=== PATIENT | male | born 1945 | race African-American/Black ===

== ENCOUNTER 2022-02-11 02:20 | Inpatient (IN) | payer MEDICARE ==
[~2022-02-11] VITALS: Ht 190.5 cm; Wt 87.1 kg
[~2022-02-11 02:20] MED LIST: ASPI-1497 MT; CARV6.2548 MT; LORA10TA7 MT; METF-414 MT; MONT-39 MT
[2022-02-11 08:51] LABS: CHLORIDE 106 mEq/L (98-107)
[2022-02-11 08:57] LABS: HEMATOCRIT. 27.6 % (42.0-52.0); MEAN CORPUSCULAR HEMOGLOBIN 27.6 pg (28.0-32.0); MEAN CORPUSCULAR VOLUME 84.3 fL (80.0-94.0); MEAN PLATELET VOLUME 10.4 fl (7.4-10.4); PLATELET 117 x1000/uL (130-400); RED BLOOD CELL COUNT 3.27 mill/uL (4.7-6.1); RED CELL DISTRIBUTION WIDTH 16.2 % (11.6-14.6)
[2022-02-11 10:08] LABS: PLATELET ESTIMATE SLIGHTLY DECREASED
[2022-02-11] MEDS ORDERED: HYDRALAZINE 20MG/ML VIAL IV ONE (11:15)
[2022-02-11 18:00] VITALS: BP 170/132
[2022-02-11 18:27] VITALS: BP 152/113
[2022-02-11 20:00] VITALS: BP 151/115
[2022-02-11] MEDS ORDERED: LEVO150T8 PO (20:27)
[2022-02-11] MEDS ORDERED: ATOR40TA70 PO (20:27)
[2022-02-11] MEDS ORDERED: CLOP-31 PO (20:27)
[2022-02-11] MEDS ORDERED: AMLO10TA80 PO (20:28)
[2022-02-11] MEDS ORDERED: CLONIDINE 0.1MG TABLET PO NR (20:30)
[2022-02-11 21:01] VITALS: BP 150/110
[2022-02-11] MEDS: ATORVASTATIN CALCIUM 40MG TABLET PO SCH (22:03)
[2022-02-11] MEDS: CARVEDILOL 12.5MG TABLET PO SCH (22:03)
[2022-02-11] MEDS: AMLODIPINE 10MG TABLET PO SCH (22:03)
[2022-02-12] VITALS (7 sets, daily range): BP systolic 122–160; BP diastolic 67–109
[2022-02-12] MEDS ORDERED: NITROGLYCERIN 0.4MG TABLET SL SL PRN (01:00)
[2022-02-12] MEDS ORDERED: HYDRALAZINE 20MG/ML VIAL IV PRN (01:00)
[2022-02-12] MEDS: LEVOTHYROXINE SODIUM 150MCG TABLET PO SCH (06:14)
[2022-02-12] MEDS: PANTOPRAZOLE 40MG DR TABLET PO SCH (06:14)
[2022-02-12 07:39] LABS: MEAN CORPUSCULAR HEMOGLOBIN 27.6 pg (28.0-32.0); MEAN PLATELET VOLUME 10.1 fl (7.4-10.4); PLATELET 110 x1000/uL (130-400); RED BLOOD CELL COUNT 2.89 mill/uL (4.7-6.1); RED CELL DISTRIBUTION WIDTH 16.1 % (11.6-14.6)
[2022-02-12] MEDS: LORATADINE 10MG TABLET PO SCH (08:59)
[2022-02-12] MEDS: CARVEDILOL 12.5MG TABLET PO SCH ×2 (08:59→21:07)
[2022-02-12] MEDS: AMLODIPINE 10MG TABLET PO SCH (08:59)
[2022-02-12] MEDS ORDERED: ASPIRIN 81MG TABLET PO SCH (09:00)
[2022-02-12] MEDS ORDERED: CLOPIDOGREL 75MG TABLET PO SCH (09:00)
[2022-02-12] MEDS ORDERED: HEPARIN 5000 UNITS/ML VIAL SUBCUT SCH (09:00)
[2022-02-12 10:44] LABS: PLATELET ESTIMATE DECREASED
[2022-02-12 11:36] LABS: T4 FREE 0.96 ng/dL (0.76-1.46)
[2022-02-12] MEDS: MONTELUKAST SODIUM 10MG TABLET PO SCH (16:32)
[2022-02-12] MEDS: SODIUM CHLORIDE 0.45% 1,000 ML IV SCH (16:32)
[2022-02-12 17:12] LABS: CLARITY URINE CLEAR (CLEAR); COLOR URINE YELLOW (YELLOW); KETONES URINE NEGATIVE (NEGATIVE); LEUKOCYTE ESTERASE URINE NEGATIVE (NEGATIVE); NITRITE URINE NEGATIVE (NEGATIVE); OCCULT BLOOD URINE NEGATIVE (NEGATIVE); PH URINE 5.5 (4.5-8.0); PROTEIN URINE 3+ (NEGATIVE); SPECIFIC GRAVITY URINE 1.014 (1.005-1.030); UROBILINOGEN URINE 0.2 E.U./dL (0.2-1.0)
[2022-02-12] MEDS: ATORVASTATIN CALCIUM 40MG TABLET PO SCH (21:16)
[2022-02-13] VITALS (7 sets, daily range): BP systolic 137–157; BP diastolic 92–101
[2022-02-13] MEDS: SODIUM CHLORIDE 0.45% 1,000 ML IV SCH ×2 (04:01→16:37)
[2022-02-13] MEDS: PANTOPRAZOLE 40MG DR TABLET PO SCH (06:15)
[2022-02-13] MEDS: LEVOTHYROXINE SODIUM 150MCG TABLET PO SCH (06:15)
[2022-02-13 07:28] LABS: BASOPHILS % 0.7 % (0.0-2.0); EOSINOPHILS % 2.6 % (0.0-5.0); HEMATOCRIT. 23.8 % (42.0-52.0); LYMPHOCYTES % 32.5 % (20.0-50.0); MEAN CORPUSCULAR HEMOGLOBIN 27.8 pg (28.0-32.0); MEAN CORPUSCULAR VOLUME 82.7 fL (80.0-94.0); MONOCYTES % 14.4 % (2.0-8.0); NEUTROPHILS % 49.8 % (40.0-76.0); PLATELET 102 x1000/uL (130-400); RED BLOOD CELL COUNT 2.88 mill/uL (4.7-6.1); RED CELL DISTRIBUTION WIDTH 15.8 % (11.6-14.6)
[2022-02-13] MEDS: LORATADINE 10MG TABLET PO SCH (08:21)
[2022-02-13] MEDS: AMLODIPINE 10MG TABLET PO SCH (08:22)
[2022-02-13] MEDS: CARVEDILOL 12.5MG TABLET PO SCH ×2 (08:24→20:34)
[2022-02-13] MEDS: HYDRALAZINE HCL 50MG TABLET PO SCH ×3 (10:33→21:26)
[2022-02-13] MEDS: MONTELUKAST SODIUM 10MG TABLET PO SCH (16:37)
[2022-02-13] MEDS: ATORVASTATIN CALCIUM 40MG TABLET PO SCH (20:33)
[2022-02-14] VITALS (24 sets, daily range): BP systolic 122–165; BP diastolic 78–107
[2022-02-14] MEDS: HYDRALAZINE HCL 50MG TABLET PO SCH ×3 (06:00→21:55)
[2022-02-14] MEDS: PANTOPRAZOLE 40MG DR TABLET PO SCH (06:27)
[2022-02-14] MEDS: LEVOTHYROXINE SODIUM 150MCG TABLET PO SCH (06:27)
[2022-02-14] MEDS: SODIUM CHLORIDE 0.45% 1,000 ML IV SCH ×2 (06:27→20:02)
[2022-02-14] MEDS: LORATADINE 10MG TABLET PO SCH (08:18)
[2022-02-14] MEDS: AMLODIPINE 10MG TABLET PO SCH (08:18)
[2022-02-14] MEDS: CARVEDILOL 12.5MG TABLET PO SCH ×2 (08:18→21:54)
[2022-02-14] MEDS ORDERED: LIDOCAINE HCL/PF 1% 10 MG/ML 5ML VIAL ONE (12:56)
[2022-02-14] MEDS ORDERED: MIDAZOLAM HCL 2 MG/2 ML VIAL ONE (13:11)
[2022-02-14] MEDS ORDERED: FENTANYL CITRATE/PF 50MCG/ML 2ML VIAL ONE (13:11)
[2022-02-14] MEDS ORDERED: CEFAZOLIN 1000MG PREMIX 50 ML IV ONE ×2 (13:25→13:43)
[2022-02-14] MEDS ORDERED: FENTANYL CITRATE/PF 50MCG/ML 2ML VIAL IV ONE ×2 (13:35→13:45)
[2022-02-14 14:39] LABS: HEPATITIS B SURFACE ANTIGEN NEGATIVE
[2022-02-14] MEDS: MONTELUKAST SODIUM 10MG TABLET PO SCH (16:43)
[2022-02-14] MEDS: EPOETIN ALFA-EPBX 4,000 UNIT/ML VIAL SUBCUT SCH (21:53)
[2022-02-14] MEDS: ATORVASTATIN CALCIUM 40MG TABLET PO SCH (21:55)
[2022-02-15] VITALS: BP 156/95
[2022-02-15 04:00] VITALS: BP 152/99
[2022-02-15] MEDS: PANTOPRAZOLE 40MG DR TABLET PO SCH (06:45)
[2022-02-15] MEDS: LEVOTHYROXINE SODIUM 150MCG TABLET PO SCH (06:45)
[2022-02-15] MEDS: HYDRALAZINE HCL 50MG TABLET PO SCH ×3 (06:45→21:35)
[2022-02-15 07:23] LABS: HEMATOCRIT. 24.2 % (42.0-52.0); HEMOGLOBIN. 8.1 g/dL (14.0-18.0); MEAN CORPUSCULAR HEMOGLOBIN 27.5 pg (28.0-32.0); MEAN CORPUSCULAR VOLUME 82.4 fL (80.0-94.0); MEAN PLATELET VOLUME 10.4 fl (7.4-10.4); PLATELET 107 x1000/uL (130-400); RED BLOOD CELL COUNT 2.93 mill/uL (4.7-6.1); RED CELL DISTRIBUTION WIDTH 15.3 % (11.6-14.6)
[2022-02-15 08:00] VITALS: BP 132/89
[2022-02-15] MEDS: SODIUM CHLORIDE 0.45% 1,000 ML IV SCH ×2 (09:41→21:33)
[2022-02-15] MEDS: LORATADINE 10MG TABLET PO SCH (09:43)
[2022-02-15] MEDS: CARVEDILOL 12.5MG TABLET PO SCH ×2 (09:43→21:32)
[2022-02-15] MEDS: AMLODIPINE 10MG TABLET PO SCH (09:43)
[2022-02-15 11:35] VITALS: BP 129/71
[2022-02-15 16:00] VITALS: BP 132/86
[2022-02-15] MEDS: MONTELUKAST SODIUM 10MG TABLET PO SCH (16:23)
[2022-02-15 20:00] VITALS: BP 141/86
[2022-02-15 21:31] LABS: PLATELET ESTIMATE DECREASED
[2022-02-15] MEDS: ATORVASTATIN CALCIUM 40MG TABLET PO SCH (21:31)
[2022-02-16] VITALS (13 sets, daily range): BP systolic 127–151; BP diastolic 64–98
[2022-02-16] MEDS: HYDRALAZINE HCL 50MG TABLET PO SCH ×3 (06:00→22:15)
[2022-02-16 06:01] LABS: HEMATOCRIT. 23.1 % (42.0-52.0); HEMOGLOBIN. 7.7 g/dL (14.0-18.0); MEAN CORPUSCULAR HEMOGLOBIN 27.8 pg (28.0-32.0); MEAN CORPUSCULAR VOLUME 83.2 fL (80.0-94.0); MEAN PLATELET VOLUME 9.9 fl (7.4-10.4); PLATELET 92 x1000/uL (130-400); RED BLOOD CELL COUNT 2.78 mill/uL (4.7-6.1); RED CELL DISTRIBUTION WIDTH 15.5 % (11.6-14.6)
[2022-02-16] MEDS: LEVOTHYROXINE SODIUM 150MCG TABLET PO SCH (06:34)
[2022-02-16] MEDS: PANTOPRAZOLE 40MG DR TABLET PO SCH (06:34)
[2022-02-16] MEDS: CARVEDILOL 12.5MG TABLET PO SCH ×2 (08:24→22:15)
[2022-02-16] MEDS: LORATADINE 10MG TABLET PO SCH (08:25)
[2022-02-16] MEDS: AMLODIPINE 10MG TABLET PO SCH ×2 (08:25→16:46)
[2022-02-16 13:28] LABS: PLATELET ESTIMATE SLIGHTLY DECREASED
[2022-02-16] MEDS: SODIUM CHLORIDE 0.45% 1,000 ML IV SCH (16:45)
[2022-02-16] MEDS: MONTELUKAST SODIUM 10MG TABLET PO SCH (16:46)
[2022-02-16] MEDS: ATORVASTATIN CALCIUM 40MG TABLET PO SCH (22:15)
[2022-02-16] MEDS: EPOETIN ALFA-EPBX 4,000 UNIT/ML VIAL SUBCUT SCH (22:15)
[2022-02-17] VITALS (7 sets, daily range): BP systolic 116–148; BP diastolic 64–96
[2022-02-17] MEDS: SODIUM CHLORIDE 0.45% 1,000 ML IV SCH ×2 (01:22→17:17)
[2022-02-17] MEDS: PANTOPRAZOLE 40MG DR TABLET PO SCH (06:26)
[2022-02-17] MEDS: LEVOTHYROXINE SODIUM 150MCG TABLET PO SCH (06:26)
[2022-02-17] MEDS: HYDRALAZINE HCL 50MG TABLET PO SCH ×3 (06:26→22:00)
[2022-02-17 08:25] LABS: BASOPHILS % 1.2 % (0.0-2.0); EOSINOPHILS % 1.7 % (0.0-5.0); HEMATOCRIT. 23.8 % (42.0-52.0); LYMPHOCYTES % 27.9 % (20.0-50.0); MEAN CORPUSCULAR VOLUME 83.5 fL (80.0-94.0); MEAN PLATELET VOLUME 10.8 fl (7.4-10.4); MONOCYTES % 13.8 % (2.0-8.0); NEUTROPHILS % 55.4 % (40.0-76.0); PLATELET 95 x1000/uL (130-400); RED BLOOD CELL COUNT 2.85 mill/uL (4.7-6.1); RED CELL DISTRIBUTION WIDTH 15.5 % (11.6-14.6)
[2022-02-17] MEDS: LORATADINE 10MG TABLET PO SCH (10:03)
[2022-02-17] MEDS: AMLODIPINE 10MG TABLET PO SCH (10:03)
[2022-02-17] MEDS: CARVEDILOL 12.5MG TABLET PO SCH ×2 (10:04→20:53)
[2022-02-17] MEDS: MONTELUKAST SODIUM 10MG TABLET PO SCH (17:15)
[2022-02-17] MEDS: ATORVASTATIN CALCIUM 40MG TABLET PO SCH (20:53)
[2022-02-17] MEDS: AMLODIPINE 5MG TABLET PO SCH (20:54)
[2022-02-18] VITALS: BP 135/87
[2022-02-18] MEDS: SODIUM CHLORIDE 0.45% 1,000 ML IV SCH (02:28)
[2022-02-18 04:00] VITALS: BP 130/79
[2022-02-18] MEDS: HYDRALAZINE HCL 50MG TABLET PO SCH ×3 (06:00→20:25)
[2022-02-18] MEDS: LEVOTHYROXINE SODIUM 150MCG TABLET PO SCH (06:37)
[2022-02-18] MEDS: PANTOPRAZOLE 40MG DR TABLET PO SCH (06:37)
[2022-02-18 08:00] VITALS: BP 127/77
[2022-02-18] MEDS: LORATADINE 10MG TABLET PO SCH (08:47)
[2022-02-18] MEDS: AMLODIPINE 5MG TABLET PO SCH ×2 (08:49→20:27)
[2022-02-18] MEDS: CARVEDILOL 12.5MG TABLET PO SCH ×2 (08:49→20:27)
[2022-02-18 12:00] VITALS: BP 114/79
[2022-02-18 16:00] VITALS: BP 118/70
[2022-02-18] MEDS: MONTELUKAST SODIUM 10MG TABLET PO SCH (17:13)
[2022-02-18 20:05] VITALS: BP 131/91
[2022-02-18] MEDS: ATORVASTATIN CALCIUM 40MG TABLET PO SCH (20:26)
[2022-02-19] VITALS (12 sets, daily range): BP systolic 113–151; BP diastolic 67–94
[2022-02-19 01:46] LABS: HEPATITIS B SURFACE ANTIGEN NEGATIVE
[2022-02-19] MEDS: HYDRALAZINE HCL 50MG TABLET PO SCH ×3 (06:00→21:35)
[2022-02-19] MEDS: PANTOPRAZOLE 40MG DR TABLET PO SCH (06:51)
[2022-02-19] MEDS: LEVOTHYROXINE SODIUM 150MCG TABLET PO SCH (06:51)
[2022-02-19] MEDS: SODIUM CHLORIDE 0.45% 1,000 ML IV SCH (08:38)
[2022-02-19] MEDS: CARVEDILOL 12.5MG TABLET PO SCH ×2 (08:39→20:48)
[2022-02-19] MEDS: AMLODIPINE 5MG TABLET PO SCH ×2 (08:39→20:48)
[2022-02-19] MEDS: LORATADINE 10MG TABLET PO SCH (08:39)
[2022-02-19] MEDS: MONTELUKAST SODIUM 10MG TABLET PO SCH (16:13)
[2022-02-19] MEDS: ATORVASTATIN CALCIUM 40MG TABLET PO SCH (20:47)
[2022-02-19] MEDS: EPOETIN ALFA-EPBX 4,000 UNIT/ML VIAL SUBCUT SCH (20:47)
[2022-02-20] VITALS: BP 143/102
[2022-02-20 04:18] VITALS: BP 129/104
[2022-02-20] MEDS: HYDRALAZINE HCL 50MG TABLET PO SCH ×3 (06:00→22:00)
[2022-02-20] MEDS: PANTOPRAZOLE 40MG DR TABLET PO SCH (06:04)
[2022-02-20] MEDS: LEVOTHYROXINE SODIUM 150MCG TABLET PO SCH (06:04)
[2022-02-20 07:11] LABS: HEMATOCRIT. 23.1 % (42.0-52.0); HEMOGLOBIN. 7.6 g/dL (14.0-18.0); MEAN CORPUSCULAR HEMOGLOBIN 27.4 pg (28.0-32.0); MEAN CORPUSCULAR VOLUME 83.2 fL (80.0-94.0); MEAN PLATELET VOLUME 10.9 fl (7.4-10.4); PLATELET 99 x1000/uL (130-400); RED BLOOD CELL COUNT 2.78 mill/uL (4.7-6.1); RED CELL DISTRIBUTION WIDTH 15.7 % (11.6-14.6)
[2022-02-20 09:00] VITALS: BP 133/87
[2022-02-20] MEDS: CARVEDILOL 12.5MG TABLET PO SCH ×2 (09:43→21:00)
[2022-02-20] MEDS: SODIUM CHLORIDE 0.45% 1,000 ML IV SCH (09:43)
[2022-02-20] MEDS: LORATADINE 10MG TABLET PO SCH (09:43)
[2022-02-20] MEDS: AMLODIPINE 5MG TABLET PO SCH ×2 (09:43→21:00)
[2022-02-20 12:00] VITALS: BP 145/89
[2022-02-20 16:00] VITALS: BP 129/89
[2022-02-20] MEDS: MONTELUKAST SODIUM 10MG TABLET PO SCH (16:57)
[2022-02-20] MEDS: ATORVASTATIN CALCIUM 40MG TABLET PO SCH (21:00)
[2022-02-20 21:27] LABS: INR 1.1; PROTHROMBIN TIME 11.7 sec (9.6-11.0)
[2022-02-21] MEDS: HYDRALAZINE HCL 50MG TABLET PO SCH ×2 (06:00→15:20)
[2022-02-21] MEDS: PANTOPRAZOLE 40MG DR TABLET PO SCH (06:50)
[2022-02-21] MEDS: LEVOTHYROXINE SODIUM 150MCG TABLET PO SCH (06:50)
[2022-02-21 08:00] VITALS: BP 144/94
[2022-02-21] MEDS: AMLODIPINE 5MG TABLET PO SCH (10:30)
[2022-02-21] MEDS: LORATADINE 10MG TABLET PO SCH (10:31)
[2022-02-21] MEDS: CARVEDILOL 12.5MG TABLET PO SCH ×2 (10:31→21:05)
[2022-02-21] MEDS: SODIUM CHLORIDE 0.45% 1,000 ML IV SCH ×2 (10:31→10:32)
[2022-02-21 12:00] VITALS: BP 141/91
[2022-02-21] MEDS ORDERED: EPOETIN ALFA-EPBX 10,000 UNIT/ML VIAL SUBCUT ONE (12:15)
[2022-02-21 16:00] VITALS: BP 139/96
[2022-02-21] MEDS: MONTELUKAST SODIUM 10MG TABLET PO SCH (16:52)
[2022-02-21 16:53] LABS: HEMATOCRIT. 22.5 % (42.0-52.0); HEMOGLOBIN. 7.4 g/dL (14.0-18.0); MEAN CORPUSCULAR HEMOGLOBIN 27.9 pg (28.0-32.0); MEAN CORPUSCULAR VOLUME 84.9 fL (80.0-94.0); MEAN PLATELET VOLUME 11.5 fl (7.4-10.4); PLATELET 97 x1000/uL (130-400); RED BLOOD CELL COUNT 2.65 mill/uL (4.7-6.1); RED CELL DISTRIBUTION WIDTH 15.5 % (11.6-14.6)
[2022-02-21 17:03] LABS: CHLORIDE 106 mEq/L (98-107)
[2022-02-21 20:00] VITALS: BP 151/97
[2022-02-21] MEDS ORDERED: ATORVASTATIN CALCIUM 40MG TABLET PO SCH (21:00)
[2022-02-21 23:48] LABS: PLATELET ESTIMATE DECREASED
[2022-02-22] VITALS (16 sets, daily range): BP systolic 125–172; BP diastolic 63–106
[2022-02-22] MEDS: LEVOTHYROXINE SODIUM 150MCG TABLET PO SCH (06:01)
[2022-02-22] MEDS: PANTOPRAZOLE 40MG DR TABLET PO SCH (06:01)
[2022-02-22 07:26] LABS: PLATELET ESTIMATE DECREASED
[2022-02-22] MEDS ORDERED: AMLODIPINE 5MG TABLET PO SCH (09:00)
[2022-02-22] MEDS ORDERED: ASPIRIN 81MG TABLET PO SCH (09:00)
[2022-02-22] MEDS ORDERED: CLOPIDOGREL 75MG TABLET PO SCH (09:00)
[2022-02-22] MEDS ORDERED: HYDRALAZINE HCL 50MG TABLET PO SCH (09:00)
[2022-02-22] MEDS: LORATADINE 10MG TABLET PO SCH (12:24)
[2022-02-22] MEDS ORDERED: HYDRALAZINE HCL 25MG TABLET PO SCH (13:00)
[2022-02-22] MEDS: CARVEDILOL 12.5MG TABLET PO SCH (14:46)
[2022-02-22] MEDS ORDERED: HYDR100T26 MT (18:24)
== END 2022-02-22 17:51 | disposition home or self-care (01) | DRG 302 ==
LOC: ER 02:20 → EDBEDREQ 12:24 → EDBEDREQTM 12:24 → ENRESERV 15:15 → 3WST 17:36
PROVIDERS: ADMIT Internal Medicine; ATTEND Internal Medicine
PROC: 0JH63XZ Insertion of Tunneled Vascular Access Device into Chest Subcutaneous Tissue and Fascia, Percutaneous Approach (ICD-10-PCS; principal; 2022-02-14)
PROC: 02HV33Z Insertion of Infusion Device into Superior Vena Cava, Percutaneous Approach (ICD-10-PCS; 2022-02-14)
PROC: B5181ZA Fluoroscopy of Superior Vena Cava using Low Osmolar Contrast, Guidance (ICD-10-PCS; 2022-02-14)
PROC: B548ZZA Ultrasonography of Superior Vena Cava, Guidance (ICD-10-PCS; 2022-02-14)
PROC: 5A1D70Z Performance of Urinary Filtration, Intermittent, Less than 6 Hours Per Day (ICD-10-PCS; 2022-02-14)
PROC: 5A1D70Z Performance of Urinary Filtration, Intermittent, Less than 6 Hours Per Day (ICD-10-PCS; 2022-02-16)
PROC: 5A1D70Z Performance of Urinary Filtration, Intermittent, Less than 6 Hours Per Day (ICD-10-PCS; 2022-02-19)
PROC: 5A1D70Z Performance of Urinary Filtration, Intermittent, Less than 6 Hours Per Day (ICD-10-PCS; 2022-02-22)
DX: I25.119 Atherosclerotic heart disease of native coronary artery with unspecified angina pectoris (principal); I63.9 Cerebral infarction, unspecified; N18.6 End stage renal disease; I13.2 Hypertensive heart and chronic kidney disease with heart failure and with stage 5 chronic kidney disease, or end stage renal disease; N17.9 Acute kidney failure, unspecified; I50.30 Unspecified diastolic (congestive) heart failure; D61.818 Other pancytopenia; D63.1 Anemia in chronic kidney disease; D69.6 Thrombocytopenia, unspecified; E03.9 Hypothyroidism, unspecified; E11.22 Type 2 diabetes mellitus with diabetic chronic kidney disease; E78.5 Hyperlipidemia, unspecified; I16.0 Hypertensive urgency; B19.20 Unspecified viral hepatitis C without hepatic coma; Z20.822 Contact with and (suspected) exposure to COVID-19; R62.7 Adult failure to thrive; Z88.8 Allergy status to other drugs, medicaments and biological substances; Z99.2 Dependence on renal dialysis; I25.2 Old myocardial infarction; Z85.819 Personal history of malignant neoplasm of unspecified site of lip, oral cavity, and pharynx; Z87.891 Personal history of nicotine dependence; Z95.5 Presence of coronary angioplasty implant and graft; Z68.24 Body mass index [BMI] 24.0-24.9, adult; Z79.899 Other long term (current) drug therapy
CPT/HCPCS: 36415; 36558; 70544; 70553; 71045; 74176; 76770; 76937; 77001; 80048; 80053; 80061; 81003; 82962; 83036; 84439; 84443; 84484; 85025; 86705; 86706; 86709; 86803; 87340; 87426; 90935; 93005; 93306; 93880; 97162; 99152; 99153; 99285; J0360; J0690; J0885; J1644; J2250; J3010; J3490; G0500

== ENCOUNTER 2022-03-20 12:56 | Emergency (ER) | payer MEDICARE ==
[~2022-03-20] VITALS: Ht 177.8 cm; Wt 78.0 kg
[~2022-03-20 12:56] MED LIST changes: +AMLO10TA80 PO; +ATOR40TA70 PO; +CLOP-31 PO; +HYDR100T26 MT; +LEVO150T8 PO; -METF-414 MT
[2022-03-20 15:25] VITALS: BP 128/88
[2022-03-20 15:54] LABS: INR 1.1; PROTHROMBIN TIME 11.4 sec (9.6-11.0)
[2022-03-20 16:00] LABS: HEMATOCRIT. 33.1 % (42.0-52.0); HEMOGLOBIN. 10.6 g/dL (14.0-18.0); MEAN CORPUSCULAR HEMOGLOBIN 27.6 pg (28.0-32.0); MEAN CORPUSCULAR VOLUME 85.9 fL (80.0-94.0); MEAN PLATELET VOLUME 10.5 fl (7.4-10.4); PLATELET 127 x1000/uL (130-400); RED BLOOD CELL COUNT 3.85 mill/uL (4.7-6.1); RED CELL DISTRIBUTION WIDTH 17.5 % (11.6-14.6)
[2022-03-20 16:11] LABS: CHLORIDE 99 mEq/L (98-107)
[2022-03-20 17:46] LABS: PLATELET ESTIMATE DECREASED
== END 2022-03-20 17:29 | disposition left against medical advice (07) ==
LOC: ER 12:56 → EDBEDREQ 13:52 → CANBEDREQ 17:01 → ER 17:29
DX: I11.0 Hypertensive heart disease with heart failure (principal); I50.9 Heart failure, unspecified; Z88.7 Allergy status to serum and vaccine; Z88.6 Allergy status to analgesic agent; Z79.899 Other long term (current) drug therapy; Z98.890 Other specified postprocedural states; Z91.15 Patient's noncompliance with renal dialysis
CPT/HCPCS: 36415; 80053; 85025; 93005; 99284